=== PATIENT | male | born 1985 | race Hispanic/Latino ===

== ENCOUNTER 2017-10-30 06:59 | Day surgery (SDC) | payer MEDICARE ==
[~2017-10-30] VITALS: Ht 170.2 cm; Wt 118.7 kg
[2017-10-30 07:08] VITALS: BP 128/73
[2017-10-30] MEDS ORDERED: SODIUM CHLORIDE 0.9% 1000ML 1,000 ML IV ONE (07:53)
[2017-10-30] MEDS ORDERED: BREX0.25 PO (07:58)
[2017-10-30] MEDS ORDERED: DESM0.1T PO (07:58)
[2017-10-30] MEDS ORDERED: ARIP10TA8 PO (07:58)
[2017-10-30] MEDS ORDERED: CLON0.5T4 PO (07:58)
[2017-10-30] MEDS ORDERED: PROPOFOL 10 MG/ML 20ML VIAL IV ONE (08:49)
== END 2017-10-30 09:44 | disposition home or self-care (01) ==
LOC: ENDO 06:59 → DAHIP 06:59 → ENDO 09:44
PROVIDERS: ATTEND Internal Medicine Gastroenterology
DX: K92.1 Melena (principal); Z98.890 Other specified postprocedural states
CPT/HCPCS: 45378; A4606; J2704; J7030; G9654